=== PATIENT | male | born 1960 | race Caucasian/White ===

== ENCOUNTER 2017-04-24 13:20 | Inpatient (IN) | payer OTHER ==
[~2017-04-24] VITALS: Ht 193 cm; Wt 136.8 kg
--- NOTE | ~2017-04-24 | CO ---
Unit #: [id number] #: [id number] Patient: VIRAJ SANCHEZ [id number] [address] [address] [id number] I MR#: [id number] NAME: VIRAJ SANCHEZ ROOM: 555 Age: 57 Sex: M Admission Date: 04/24/2017 : 1960 Attending Physician: Kennedy Pantoja M.D. Primary Care Physician: No Primary Care Physician CONSULTATION REPORT REASON FOR CONSULTATION 1. Tachycardia. 2. Dizziness. 3. Abnormal EKG. HISTORY OF PRESENT ILLNESS A 57-year-old male with past medical history of diabetes, dyslipidemia, obesity, who has been admitted with dizziness. Patient states he has been having dizziness since morning. He denies any syncope. He denies any chest pain/shortness of breath/dyspnea on exertion. He denies orthopnea, PND or pedal edema or syncope. He reports since his gallbladder surgery two to three months prior his appetite has decreased and he is unable to keep solid or liquid food. He continues to take Lasix, for swelling, from before. Patient while in the ER had brief runs of tachycardia which have been captured on telemetry. I have reviewed those telemetry strips. The patient's ECG reveals normal sinus rhythm with nonspecific ST-segment changes and T-wave changes anteriorly. No Q waves identified. He denies any exertional chest discomfort. He states he can go more than two flights of stairs without any difficulty. PAST MEDICAL HISTORY 1. Diabetes. 2. Dyslipidemia. 3. Obesity. PAST SURGICAL HISTORY 1. Cholecystectomy recently. 2. Denies any cardiac surgery. FAMILY HISTORY Family history is positive for premature coronary artery disease in father with coronary artery bypass grafting at young age. REVIEW OF SYSTEMS Denies fever, nausea, abdominal pain, diarrhea, tingling, numbness, headache, cough, denies swelling. All 14-point review of systems is negative unless as per HPI. Unit #: [id number] #: [id number] Patient: VIRAJ SANCHEZ PHYSICAL EXAMINATION VITAL SIGNS: The patient's blood pressure is 116/77 with a heart rate of 84 beats per minute. He is afebrile, temperature 98.8. GENERAL: Not in acute distress. CHEST: Chest is clear and normal vesicular breath sounds are heard bilaterally. HEART: S1 and S2 are heard. There is no murmur heard. EXTREMITIES: There is no edema. There is no JVD. ABDOMEN: Soft, nontender. Bowel sounds are present. NEUROLOGICALALLY: Speech normal. No motor deficit. PSYCHIATRIC: Mood and affect normal. NECK: There is no thyromegaly, no JVD. MUSCULOSKELETAL: No gross deformity. No scoliosis. HEENT: PERRLA. DIAGNOSTIC STUDIES CARDIOVASCULAR: ECG shows normal sinus rhythm with nonspecific ST/T-wave change seen anteriorly and anterolaterally. Tele strips have been reviewed. Most strips are in normal sinus rhythm. There are three episodes of episodic tachycardia. There is a strip at 13:32:40 which reveals tachycardia at a heart rate around 150 beats per minute. It is not wide enough to be consistent with ventricular tachycardia, likely SVT. LABORATORY: The patient's point of care troponin is negative. The patient's creatinine is 2.0, BUN is 11, glucose is 200, sodium 134, potassium 2.8, chloride is 90, bicarb of 21, bilirubin 0.9, indirect bilirubin is 1.6, alkaline phosphatase is 94, AST of 27, ALT of 21. Next, CT total is 98, BNP is 77. ASSESSMENT AND PLAN 1. Dizziness/tachycardia on telemetry representing likely supraventricular tachycardia: I would consider getting a 2D echocardiogram. This could also re-present secondary to deranged electrolytes. Though given nonspecific ST-segment change on baseline EKG, I would consider also getting a stress test to rule out ischemic heart disease, especially in a patient with diabetes and premature coronary artery disease. He will be scheduled for 2D echocardiogram and stress test in the morning. Continue metoprolol 25 mg p.o. b.i.d. 2. Dyslipidemia: The patient is diabetic. Start statin Lipitor 20 mg p.o. daily. Also start aspirin 81 mg p.o. daily. 3. Dizziness: Could also represent orthostasis in somebody with poor appetite and regular use of Lasix with acute kidney injury at presentation. Agree with saline bolus. Continue IV fluids, Discontinue home dose of Lasix and hold metformin. 4. Further plan of care as inpatient. Dictated by... Ines Pereira/arlet TD: 04/24/2017 22:25 Unit #: [id number] #: [id number] Patient: VIRAJ SANCHEZ JOB #: [id number] CONSULTATION REPORT Page 1 of 1 X DAVID STONE MD CONSULTATION REPORT
--- NOTE | ~2017-04-24 | EKG ---
PATIENT: VIRAJ SANCHEZ UNIT #: [id number] Ventricular Rate: 92 BPM Atrial Rate: 92 BPM P-R Interval: 176 ms QRS Duration: 92 ms Q-T Interval: 356 ms QTC Calculation(Bezet): 440 ms P [place]: 67 degrees Calculated R [place]: -28 degrees Calculated T [place]: 137 degrees Diagnosis Line: Normal sinus rhythm Diagnosis Line: Diagnosis Line: Diagnosis Line: No previous ECGs available Diagnosis Line: Confirmed by BEVERLY ZULUAGA MD ([id number]) on Diagnosis Line: 04/24/2017 7:39:05 PM INTERPRETING MD: MARGARETH ELAINE
--- NOTE | ~2017-04-24 | CR72 ---
[facility] A Service of [facility] & [facility] RADIOLOGY TEXT RESULTS PATIENT: VIRAJ SANCHEZ LOCATION: [facility] [id number] : [birth year] UNIT #: [id number] AGE: [address]: Kennedy Pantoja MD SEX: M ORDER DR: [id number] [facility] [address] [facility]. [place], [place] [address] [id number] I MR#: [id number] Acc #: [id number] NAME: VIRAJ SANCHEZ : 1960 SEX: M STUDY DATE/TIME: 04/24/2017 14:10 UNIT: [facility] ROOM: [facility] STUDY DESCRIPTION: CR Chest Single View Portable Attending Physician: Kennedy Pantoja M.D. Ordering Physician: Semaj Baldwin M.D. Primary Care Physician: No Primary Care Physician MEDICAL IMAGING REPORT This report is preliminary unless electronic signature is present EXAM portable chest. INDICATIONS Chest pain today. COMPARISON 03/01/2017 FINDINGS The lungs are well expanded. No acute infiltrate. Heart size normal. Visualized osseous structures are unremarkable. IMPRESSION No active disease. Dictated by... Ousmane Bocanegra M.D. THIS IS AN ELECTRONICALLY VERIFIED REPORT Ousmane Bocanegra M.D. at 04/26/2017 5:00 PM ARS/florin TD: 04/25/2017 07:56 JOB #: [id number] MEDICAL IMAGING REPORT Page 1 of 1 COPY
--- NOTE | ~2017-04-24 | ST ---
Unit #: [id number] #: [id number] Patient: VIRAJ SANCHEZ [id number] [address] [address] [id number] I MR#: [id number] NAME: VIRAJ SANCHEZ : 1960 SEX: M STUDY DATE/TIME: 04/25/2017 UNIT: C5B ROOM: [address] [place] [address] DESCRIPTION: Attending Physician: Kennedy Pantoja M.D. Primary Care Physician: No Primary Care Physician CARDIOLOGY REPORT EXAM EKG/nuclear part of the test. FINDINGS Patient's baseline heart rate is 77 beats per minute. Blood pressure is 114/77. Patient received Lexiscan infusion as per protocol. During peak infusion, heart rate 105 beats per minute, blood pressure 108/68. Baseline EKG showing normal sinus rhythm, normal EKG. During Lexiscan infusion recovery, no further ST-T changes. Patient received 11.2 mCi of Cardiolite at rest and 34.7 mCi of Cardiolite during stress. Both sets of imaging were compared. Patient shows fairly uniform uptake of radiotracer. No defect was noted. Patient also has gated SPECT scan which showed normal LV size and function. No wall motion abnormality detected. Ejection fraction 58%. INTERPRETATION OF TEST 1. No evidence of myocardial ischemia. 2. Normal LV size and function. Dictated by... Ines Mcfarlane/angel TD: 04/27/2017 10:06 JOB #: [id number] CARDIOLOGY REPORT Page 1 of 1 X Neal Devine MD CARDIOLOGY REPORT
--- NOTE | ~2017-04-24 | HP ---
Unit #: [id number] #: [id number] Patient: VIRAJ SANCHEZ [id number] [facility] [address] [facility]. [place], [place] [address] [id number] I MR#: [id number] NAME: VIRAJ SANCHEZ ROOM: 78729 Age: 57 Sex: M Admission Date: 04/24/2017 : 1960 Attending Physician: Kennedy Pantoja M.D. Primary Care Physician: No Primary Care Physician HISTORY AND PHYSICAL DIAGNOSES ON ADMISSION 1. Acute kidney injury. 2. Hypokalemia. HISTORY OF PRESENT ILLNESS A 57-year-old patient presented to [facility] with shortness of air. Patient stated that he was in his usual state of health when he developed shortness of air which was sudden in onset and started a few hours prior to presenting to ER. Patient stated that it was worse on ambulation. Patient stated that he had a tough time catching his breath; therefore, he decided to come to the hospital. He also complained of discomfort across the top of his back which started around the same time. Patient stated that otherwise he was doing okay. He denies having any diarrhea or fever or chills. In the ER patient was diagnosed with severe hypokalemia with a potassium level of 2.8. He was given potassium 40 mEq. Patient stated that the shortness of air has improved and the shoulder discomfort has improved as well but he is complaining of generalized weakness. Patient denies having any headache, visual problems, sore throat, nausea or vomiting. There is no history of rectal bleeding or blood in stools. REVIEW OF SYSTEMS The rest of the review of systems is negative. PAST MEDICAL HISTORY 1. Type 2 diabetes mellitus. 2. Degenerative joint disease. 3. Patient had history of biliary obstruction and common bile duct stones and had an ERCP in August 2006 in which the stones were removed. 4. Cholecystectomy. Patient stated that he had a cholecystectomy done around three months ago at [facility]. ALLERGIES No known drug allergies. HOME MEDICATIONS Patient takes: 1. Ibuprofen off and on 800 mg t.i.d. p.r.n. 2. Potassium 10 mEq daily. 3. Glucophage 1000 mg p.o. b.i.d. 4. Lasix 40 mg p.o. daily. Unit #: [id number] #: [id number] Patient: VIRAJ SANCHEZ SOCIAL HISTORY Patient denies smoking or drinking or use of illicit drugs. FAMILY HISTORY Patient denies any significant history of illness in his family. PHYSICAL EXAMINATION GENERAL: Patient was lying comfortably in bed, not in any obvious acute distress. VITAL SIGNS: On physical examination his vital signs reveal temperature of 97.6, pulse is 95 per minute, respiratory rate is 16 per minute, blood pressure is 102/76. HEENT EXAMINATION: Revealed no conjunctival congestion. Sclerae are nonicteric. NECK: Supple. Trachea is central. RESPIRATORY: Examination revealed decreased breath sounds bilaterally. There are no wheezes or crackles. HEART: Regular rate and rhythm, S1 and S2. ABDOMEN: Soft, nontender. Bowel sounds are present in all four quadrants. EXTREMITIES: Reveal trace pedal edema. SKIN: Skin is warm and dry. NEUROLOGIC: Neurologically patient's strength is 5/5 bilaterally. PSYCHIATRIC: Patient is alert to person, place and time. DIAGNOSTIC STUDIES LABORATORY: On admission the patient's creatinine is 2.0, it was 0.11 August 2016, sodium is 134, potassium is 2.8. Next, the patient's AST and ALT are within normal limits. Next, total bilirubin was 2.1. Next, BNP was 77. Next, WBC is 14.7, hemoglobin is 15.3, platelet count is 323. The patient's troponin was negative. CARDIOVASCULAR: Initially when the patient came to the ER he had a wide complex tachycardia in 160s. When his EKG was done he had a normal sinus rhythm with decreased T-wave projection. IMAGING: Chest x-ray did not reveal any acute abnormality as per preliminary report. ASSESSMENT AND PLAN 1. Severe hypokalemia: We will replete the patient's potassium. It is secondary to Lasix. 2. Acute kidney injury, it is multifactorial and likely secondary to ibuprofen, Lasix and metformin. 3. Type 2 diabetes mellitus: Will do the patient's hemoglobin A1C and will start on insulin sliding scale. 4. Degenerative joint disease: Will start patient on Tylenol. 5. Wide complex tachycardia: I will request Dr. Herbert to see patient in consultation. We will repeat the patient's magnesium level with next lab draw. 6. Patient is full code. 7. The plan was discussed in detail with patient. Unit #: [id number] #: [id number] Patient: VRIAJ SANCHEZ Dictated by Ines Montana/arlet TD: 04/24/2017 20:46 JOB #: [id number] HISTORY AND PHYSICAL Page 1 of 1 X Kennedy Pantoja MD X HISTORY AND PHYSICAL
--- NOTE | ~2017-04-24 | DS ---
Unit #: [id number] #: [id number] Patient: VIRAJ SANCHEZ [id number] [address] [place], [place] [address] [id number] I MR#: [id number] NAME: VIRAJ SANCHEZ ROOM: 555 Age: 57 Sex: M Admission Date: 04/24/2017 : 1960 Discharge Date: 04/25/2017 Attending Physician: Kennedy Pantoja M.D. Primary Care Physician: No Primary Care Physician DISCHARGE SUMMARY DIAGNOSES ON ADMISSION 1. Acute kidney injury. 2. Hypokalemia. DIAGNOSES ON DISCHARGE 1. Acute kidney injury, resolved. 2. Hypokalemia, improved. 3. Type 2 diabetes mellitus. 4. Degenerative joint disease. 5. Tachycardia. 6. Dizziness. CONSULTATIONS Dr. Brown and group in cardiac consultation. DIAGNOSTIC STUDIES CARDIOVASCULAR: The patient had a Lexiscan stress test done. The results are pending. The patient also had a two-D echocardiogram done. The results are pending. LABS: The patient's hemoglobin A1C was 7.82. Troponin was 0.05. TSH was 1.38. The patient's potassium level on admission was 2.8. It is 3.3 today. Creatinine is 1.2, sodium 134. White blood cells 8.6, hemoglobin 13.6, platelet count 219. IMAGING: Chest x-ray did not reveal any active disease. HOSPITAL COURSE This 57-year-old patient was admitted to the hospital with weakness, shortness of air. Details are as per admission H and P. The patient was seen by cardiology in consultation. The patient had a stress test done and echocardiogram done, which are pending. OK was ruled out. Acute kidney injury. The patient responded to IV fluids, and it is resolved. Hypokalemia. The patient severe hypokalemia. Received IV potassium, and his potassium level is normal. Today, the patient is comfortable and feels much better and is anxious to go home. Therefore, if the patient's stress test and echo are okay, then we will discharge the patient home with followup on outpatient basis. Unit #: [id number] #: [id number] Patient: VIRAJ SANCHEZ RECOMMENDATIONS ON DISCHARGE 1. Condition is stable. 2. Activity is as tolerated. DISCHARGE MEDICATIONS 1. Tylenol 650 mg p.o. q.6 hours p.r.n. 2. Lopressor 25 mg p.o. b.i.d. 3. Lipitor 20 mg p.o. q.h.s. 4. Enteric-coated aspirin 81 mg p.o. daily. 5. Potassium 10 mEq p.o. daily. FOLLOWUP/RECOMMENDATIONS 1. The patient is advised to follow up with primary care physician in 1 week and with cardiology as recommended. 2. The patient is advised to call primary care physician or go to ER if his condition changes. NOTE: The plan was discussed in detail with the patient, who showed complete understanding. Dictated by... Ines Montana/london TD: 04/25/2017 14:47 JOB #: [id number] DISCHARGE SUMMARY Page 1 of 1 X Kennedy Pantoja MD X DISCHARGE SUMMARY
[~2017-04-24 13:20] MED LIST: ACTOS PO; HYDROCODONE-APA1 T30 PO; NO MEDICATIONS; NORCO 10/325 TA1 TAB PO
[2017-04-24 14:05] LABS: POC - CKMB 5.4 ng/mL (0.0-7.9); POC - TROPONIN <0.05 ng/mL (<=0.05)
[2017-04-24 14:07] LABS: BASOPHIL# 0.1 X10e3 (0-0.3); BASOPHIL% 0.7 % (0-2.5); EOSINOPHIL# 0.1 X10e3 (0-0.7); EOSINOPHIL% 0.5 % (0.0-7.0); HEMATOCRIT 47.6 % (38.0-50.0); HEMOGLOBIN 15.3 gm/dL (13.0-16.0); LYMPHOCYTE# 2.3 X10e3 (1.0-3.5); LYMPHOCYTE% 15.9 % (17.0-45.0); MEAN CELL VOLUME 80.4 FL (83-96); MEAN CORPUSCULAR HEMOGLOBIN 25.9 PG (28-34); MEAN CORPUSCULAR HGB CONC 32.1 g/dL (30-36); MEAN PLATELET VOLUME 8.7 FL (6.5-11.5); MONOCYTE# 0.9 X10e3 (0-1.0); MONOCYTE% 6.1 % (3.0-12.0); NEUTROPHIL# 11.3 X10e3 (1.5-7.1); NEUTROPHIL% 76.8 % (40-75); PLATELET COUNT 323 X10e3 (140-420); RED BLOOD COUNT 5.92 X10e (3.90-5.60); WHITE BLOOD COUNT 14.7 X10e3 (4.0-10.5)
[2017-04-24 14:09] LABS: DIFF IND NO
[2017-04-24 14:33] LABS: ALBUMIN SERUM 3.9 g/dL (3.5-5.0); BILIRUBIN, DIRECT 0.5 mg/dL (0.0-0.2); BILIRUBIN,INDIRECT 1.6 mg/dL (0.0-0.9); BILIRUBIN,TOTAL 2.1 mg/dL (0.2-2.0); BUN/CREATININE RATIO 5.5; CALCIUM SERUM 9.4 mg/dL (8.4-10.2); GLOM FILT RATE Estimated 35.5 mL/min (>60)
[2017-04-24 14:42] LABS: POTASSIUM 2.8 mmol/L (3.5-5.1)
[2017-04-24] MEDS ORDERED: PATIENT'S PHARMACY (14:59)
[2017-04-24] MEDS ORDERED: IBUPROFEN PO (14:59)
[2017-04-24] MEDS ORDERED: LASIX PO (14:59)
[2017-04-24] MEDS ORDERED: KCL PO (14:59)
[2017-04-24] MEDS ORDERED: METFORMIN PO (14:59)
[2017-04-24 21:45] LABS: %MB 6.4 % (0.0-4.0); MB 6.3 ng/ml
[2017-04-24 23:43] LABS: MAGNESIUM 1.5 mg/dL (1.6-3.0)
[2017-04-24 23:45] LABS: POTASSIUM 2.8 mmol/L (3.5-5.1)
[2017-04-25 02:53] LABS: %MB 3.8 % (0.0-4.0); MB 11.1 ng/ml
[2017-04-25 05:27] LABS: HEMATOCRIT 41.5 % (38.0-50.0); HEMOGLOBIN 13.6 gm/dL (13.0-16.0); MEAN CELL VOLUME 79.3 FL (83-96); MEAN CORPUSCULAR HGB CONC 32.7 g/dL (30-36); MEAN PLATELET VOLUME 8.2 FL (6.5-11.5); RED BLOOD COUNT 5.23 X10e (3.90-5.60); RED CELL DISTRIBUTION WIDTH 15.8 % (11.0-15.5); WHITE BLOOD COUNT 8.6 X10e3 (4.0-10.5)
[2017-04-25 06:55] LABS: BUN/CREATININE RATIO 6.66; CALCIUM SERUM 8.3 mg/dL (8.4-10.2); CREATININE SERUM 1.2 mg/dL (0.6-1.4); GLOM FILT RATE Estimated 65.8 mL/min (>60); MAGNESIUM 1.7 mg/dL (1.6-3.0); POTASSIUM 3.3 mmol/L (3.5-5.1)
[2017-04-25] MEDS ORDERED: TYLENOL325 M1 PO (14:23)
[2017-04-25] MEDS ORDERED: LOPRESSOR PO (14:24)
[2017-04-25] MEDS ORDERED: GLUCOTROL PO (14:25)
[2017-04-25] MEDS ORDERED: ASPIRIN81 MG PO (14:27)
[2017-06-24] MEDS ORDERED: NO MEDICATIONS (21:25)
[2017-06-26] MEDS ORDERED: FAMOTIDINE PO (16:15)
== END 2017-04-25 18:41 | disposition home or self-care (01) | DRG 683 ==
LOC: CED 13:20 → CEDOF 15:40 → CED 16:35 → CEDOF 16:35 → C5B 21:46 → CEDOF 21:46 → C5B 04-25 18:41
PROVIDERS: Emergency Medicine; Internal Medicine
PROC: B24BYZZ Ultrasonography of Heart with Aorta using Other Contrast (ICD-10-PCS; principal; 2017-04-25)
DX: N17.9 Acute kidney failure, unspecified (principal); I47.1 Supraventricular tachycardia; Z68.41 Body mass index [BMI] 40.0-44.9, adult; E87.6 Hypokalemia; E11.9 Type 2 diabetes mellitus without complications; Z79.84 Long term (current) use of oral hypoglycemic drugs; M19.90 Unspecified osteoarthritis, unspecified site; Z90.49 Acquired absence of other specified parts of digestive tract; R94.31 Abnormal electrocardiogram [ECG] [EKG]; E78.5 Hyperlipidemia, unspecified; E66.9 Obesity, unspecified; R42 Dizziness and giddiness
CPT/HCPCS: 36415; 71010; 78452; 80048; 80076; 82550; 82553; 82947; 83036; 83735; 83880; 84132; 84443; 84484; 85025; 85027; 93005; 93017; 93306; 96360; 99285; A9500; J1650; J2785; J3475; J3480

== ENCOUNTER 2017-05-08 09:59 | Emergency (ER) | payer OTHER ==
[~2017-05-08] VITALS: Ht 190.5 cm; Wt 136.8 kg
--- NOTE | ~2017-05-08 | US67 ---
[facility] A Service of [facility] RADIOLOGY TEXT RESULTS PATIENT: VIRAJ SANCHEZ LOCATION: [facility] : 56 UNIT #: [id number] AGE: [address]: Maria C Bee MD SEX: M ORDER DR: [id number] [facility]. [place], [place] [address] [id number] MR#: [id number] Acc #: [id number] NAME: VIRAJ SANCHEZ : 1960 SEX: M STUDY DATE/TIME: 05/08/2017 12:06 UNIT: [facility] ROOM: STUDY DESCRIPTION: US Gallbladder Attending Physician: Maria C Bee M.D. Ordering Physician: Maria C Bee M.D. Primary Care Physician: Primary Care Physician No MEDICAL IMAGING REPORT This report is preliminary unless electronic signature is present EXAM Gallbladder ultrasound 05/08/2017 HISTORY Right upper quadrant abdominal pain for 1 day with jaundice. FINDINGS Liver demonstrates an increase in echotexture with attenuation of the ultrasound beam characteristic of fatty infiltration. No cystic or solid mass lesions were seen in the liver. The intrahepatic bile ducts are not dilated. The gallbladder is surgically absent as per patient history. The common duct measures 8 mm in diameter which is minimally dilated. Clinical correlation recommended. The pancreas is poorly visualized due to overlying bowel gas. The right kidney is normal. IMPRESSION 1. Mild fatty infiltration of the liver. 2. Surgical absence of the gallbladder with mild dilatation of the common bile duct to 8 mm. No obstructing mass or calculus is seen but distal aspect of the common bile duct and pancreas are obscured by bowel gas. Clinical correlation is recommended. Dictated by... Alli Zambrano M.D. THIS IS AN ELECTRONICALLY VERIFIED REPORT Alli Zambrano M.D. at 05/09/2017 7:22 AM KRT/to TD: 05/08/2017 21:04 JOB #: [id number] MEDICAL IMAGING REPORT [facility] A Service of [facility] RADIOLOGY TEXT RESULTS PATIENT: VIRAJ SANCHEZ LOCATION: [facility] : 56 UNIT #: [id number] AGE: [address]: Maria C Bee MD SEX: M ORDER DR: Page 1 of 1 COPY
[~2017-05-08 09:59] MED LIST changes: +ASPIRIN81 MG PO; +GLUCOTROL PO; +IBUPROFEN PO; +KCL PO; +LASIX PO; +LOPRESSOR PO; +METFORMIN PO; +PATIENT'S PHARMACY; +TYLENOL325 M1 PO
[2017-05-08 10:57] LABS: BASOPHIL% 0.7 % (0-2.5); DIFF IND NO; EOSINOPHIL# 0.1 X10e3 (0-0.7); EOSINOPHIL% 2.4 % (0.0-7.0); HEMATOCRIT 36.1 % (38.0-50.0); HEMOGLOBIN 11.9 gm/dL (13.0-16.0); LYMPHOCYTE# 1.2 X10e3 (1.0-3.5); LYMPHOCYTE% 20.8 % (17.0-45.0); MEAN CELL VOLUME 81.2 FL (83-96); MEAN CORPUSCULAR HEMOGLOBIN 26.8 PG (28-34); MEAN CORPUSCULAR HGB CONC 33.1 g/dL (30-36); MEAN PLATELET VOLUME 7.5 FL (6.5-11.5); MONOCYTE# 0.4 X10e3 (0-1.0); MONOCYTE% 6.5 % (3.0-12.0); NEUTROPHIL# 4.2 X10e3 (1.5-7.1); NEUTROPHIL% 69.6 % (40-75); PLATELET COUNT 192 X10e3 (140-420); RED BLOOD COUNT 4.44 X10e (3.90-5.60); RED CELL DISTRIBUTION WIDTH 16.7 % (11.0-15.5)
[2017-05-08 11:31] LABS: ALBUMIN SERUM 2.7 g/dL (3.5-5.0); BILIRUBIN, DIRECT 0.2 mg/dL (0.0-0.2); BILIRUBIN,INDIRECT 0.8 mg/dL (0.0-0.9); CALCIUM SERUM 8.2 mg/dL (8.4-10.2); PROTEIN TOTAL SERUM 6.1 g/dL (6.0-8.3)
[2017-05-08 12:51] LABS: URINE SOURCE CLEAN CATCH
[2017-05-08 12:54] LABS: URINE APPEARANCE CLEAR; URINE BILIRUBIN NEG (NEG); URINE BLOOD NEG (NEG); URINE COLOR DK YELLOW; URINE GLUCOSE NEG (NEG); URINE KETONE NEG (NEG); URINE LEUKOCYTE ESTERASE TRACE (NEG); URINE NITRATE NEG (NEG); URINE PH 6.5 (5-8); URINE PROTEIN TRACE (NEG); URINE SPECIFIC GRAVITY 1.013 (1.003-1.035)
[2017-05-08 12:56] LABS: CULTURE INDICATED? YES; URINE BACTERIA AUWI NEG (NEGATIVE); URINE SQUAMOUS EPITHELIAL CELL FEW /[HPF]
[2017-05-08 13:04] LABS: URINE MUCUS PRESENT
[2017-05-08 13:07] LABS: URBCS1 AUWI 0-2 /[HPF] (0-2)
[2017-06-24] MEDS ORDERED: NO MEDICATIONS (21:25)
[2017-06-26] MEDS ORDERED: FAMOTIDINE PO (16:15)
== END 2017-05-08 14:19 | disposition home or self-care (01) ==
LOC: CED 09:59
DX: R10.11 Right upper quadrant pain (principal); E11.9 Type 2 diabetes mellitus without complications; Z90.49 Acquired absence of other specified parts of digestive tract; Z98.890 Other specified postprocedural states; Z79.899 Other long term (current) drug therapy
CPT/HCPCS: 36415; 76705; 80048; 80076; 81003; 83690; 85025; 87086; 99284

== ENCOUNTER 2017-05-13 12:20 | Inpatient (IN) | payer OTHER ==
[~2017-05-13] VITALS: Ht 193 cm; Wt 136.1 kg
--- NOTE | ~2017-05-13 | MR145 ---
[facility] A Service of [facility] & [facility] RADIOLOGY TEXT RESULTS PATIENT: VIRAJ SANCHEZ LOCATION: C2A 219-01 : [birth year] UNIT #: [id number] AGE: [address]: MANDA MCDERMOTT V SEX: M ORDER DR: [id number] [facility]. [place], [place] [address] [id number] I MR#: [id number] Acc #: [id number] NAME: VIRAJ SANCHEZ : 1960 SEX: M STUDY DATE/TIME: 05/14/2017 13:25 UNIT: C2A ROOM: 219 STUDY DESCRIPTION: MR MRCP WWo Contrast Attending Physician: Manda Mcdermott M.D. Ordering Physician: Antolin Escobar M.D. Primary Care Physician: Primary Care Physician No MRI CENTER REPORT This report is preliminary unless electronic signature is present. EXAM MRI abdomen with/without contrast, MRCP protocol INDICATIONS Right upper quadrant abdominal pain, nausea and vomiting for the past 2 weeks. Patient is status post cholecystectomy 2-3 months ago. PROCEDURE Multiplanar, multisequence MR imaging of the abdomen prior to and following 20 mL of MultiHance. COMPARISON 05/13/2017 and 02/23/2017 FINDINGS ABDOMEN WITHOUT CONTRAST: Liver enlarged measuring 21.9 cm, spleen enlarged measuring 16 cm. Mild hepatic steatosis. Previous cholecystectomy. Pneumobilia. Mild prominence of the biliary system. Pancreatic duct nondilated. Kidneys, adrenal glands, pancreas, bowel loops have normal signal. No new organized fluid collection. There are three nonspecific foci in the upper abdomen, one along the subcapsular anterior right hepatic lobe, one anterior to the stomach, and the other in the anterior left upper quadrant. These show decreased T2 signal intensity. The one anterior to the right lobe measures 1.6 cm, one anterior to the stomach measures 1.6 cm, and one in the left upper quadrant measures 1.9 cm. These are stable to minimally decreased compared with the previous CT on 05/13/2017. ABDOMEN WITH CONTRAST: Above described three foci do show rim enhancement. There is also a poorly defined area of enhancement and STS. [facility] A Service of [facility] & [facility] RADIOLOGY TEXT RESULTS PATIENT: VIRAJ SANCHEZ LOCATION: A 219-01 : [birth year] UNIT #: [id number] AGE: [address]: MANDA MCDERMOTT V SEX: M ORDER DR: heterogeneous signal in the omental fat at the midline. This area is stable, measuring 3 cm. IMPRESSION 1. Previous cholecystectomy. 2. No new organized fluid collection. 3. Hepatosplenomegaly. 4. Three nonspecific nodular foci in the upper abdomen detailed above do show rim enhancement. As previously stated, these may represent resolving hematomas. They are stable to minimally decreased in size since the 05/13/2017 study and can be followed to document resolution. 5. 3-cm area of poorly defined enhancement and heterogeneous signal in the midline omental fat is favored to represent an area of evolving fat necrosis. This can be followed, as well. 6. Minimal prominence of the biliary system with pneumobilia. Dictated by... Stephan Carter M.D. THIS IS AN ELECTRONICALLY VERIFIED REPORT Stephan Carter M.D. at 05/15/2017 8:17 AM EED/fang TD: 05/14/2017 16:47 JOB #: [id number] MRI CENTER REPORT Page 1 of 1 COPY
--- NOTE | ~2017-05-13 | OR ---
Unit #: [id number] #: [id number] Patient: VIRAJ SANCHEZ [id number] [address] [address] [id number] I MR#: [id number] NAME: VIRAJ SANCHEZ ROOM: 219 Date of Procedure: 05/16/2017 Admission Date: 05/13/2017 Surgeon: Antolin Escobar M.D. : 1960 Attending Physician: Maggie Wade M.D. Primary Care Physician: Primary Care Physician No OPERATIVE REPORT PROCEDURE PERFORMED Esophagogastroduodenoscopy with biopsies. INDICATIONS FOR PROCEDURE Persistent right upper quadrant pain, anemia, nausea, and vomiting, undergoing evaluation with upper endoscopy. MEDICATIONS Monitored anesthesia. POSTOPERATIVE FINDINGS 1. 5 mm ulcer, duodenal bulb. 2. Moderate gastritis, biopsies taken. 3. Normal esophagus. PLAN Continue PPI therapy. Further evaluation needed with colonoscopy. DESCRIPTION OF PROCEDURE The patient was explained of the procedure, risks, and benefits along with the risks and benefits of anesthesia. He was brought to the endoscopy room. Propofol anesthesia was given. Bite block was placed. The scope was passed down the mouth into the esophagus, stomach, duodenum, and distal duodenum. Findings as described. Biopsies taken. Gently, I pulled the scope out of the patient's mouth. He tolerated it well. No major complications were seen. Dictated by... Ines rBown/rick TD: 05/16/2017 12:17 JOB #: [id number] Unit #: [id number] #: [id number] Patient: VIRAJ SANCHEZ OPERATIVE REPORT Page 1 of 1 X Antolin Escobar MD X PROCEDURE OPERATIVE NOTE
--- NOTE | ~2017-05-13 | A ---
[facility] Nutrition Therapy DATE: 05/15/17 Patient: VIRAJ SANCHEZ Physician: KATIE Address: [address] [place] [address] Room/Bed: [address] [place] [address], Zip: [place] [address] Admit Date: 05/13/17 Date of : 56 Height: 6 4 Weight: 300 136.07 NUTRITIONAL ASSESSMENT: REASON: 5 NUTRITION RISK PT RE: WEIGHT LOSS NOTED PT IS 57 Y.O. MALE ADMITTED FOR ABD PAIN PMH: DM, COMMON BILE DUCT S/P ERCP, CHOLY, DJD, ETOH ABUSE Anthropometrics: 6'4", WT: 299# (135.9 KG), BMI: 36.4 Labs: BUN: 6, CA+:8.1, ALB: 2.3, ALT: 9, HgbA1c: 7.2 (04/24/17), LIPASE: 16 Meds: PROTONIX, NOVOLOG, KCL, ZOFRAN, NACL I/O & Bowel function: 2860/1452 Skin Integrity: NO KNOWN SKIN ISSUES Assessment: CHART REVIEWED AND EVENTS NOTED. PT SEEN FOR 5 NUTRITION RISK PT RE: WEIGHT LOSS. PT REPORTS DECREASED PO INTAKE 2' DECREASED APPETITE SINCE FEBRUARY 2017 (3 MONTHS) POST CHOLECYSTECTOMY. PT REPORTS STARTING TO EAT AGAIN 2 WEEKS AGO. PT C/O ABD PAIN. PT REPORTS LOSING ~100# PAST 3 MONTHS/SEVERE WEIGHT LOSS NOTED (25% SEVERE). THIS RD ENCOURAGED SLOW GRADUAL PO INTAKE + FREQUENT SMALL MEALS. PT CURRENTLY NPO FOR PROCEDURE TODAY. PT WAS ON CC DIET PRIOR. RD ALSO PROVIDED CC+HH DIET EDUCATION (WRITTEN AND VERBAL). PT DEMONSTRATED UNDERSTANDING OF THE TOPIC. PT REPORTED NO DIET QUESTIONS AT THIS TIME. RD TO FOLLOW/REMAIN AVAILABLE. Dx: DECREASED PROTEIN-ENERGY INTAKE R/T ABD PAIN, PMH AEB PT REPORT ABOVE, ~25%/100# WEIGHT LOSS IN PAST 3 MONTHS. 2. OBESITY CLASS II R/T LIFESTYLE AEB BMI OF 36.4. Intervention: 1. NPO 2. DIET EDUCATION Monitoring, Evaluation and Goals: 1. ORAL INTAKE; ADVANCE DIET AND CONSUME/TOLERATE >50% OF MEALS 2. WEIGHTS; PROMOTE GRADUAL WEIGHT LOSS TOWARDS A HEALTHY BMI 3. LABS; WNL MONITOR: -DIET ADVANCEMENT -PO INTAKE/APPETITE [facility] Nutrition Therapy DATE: 05/15/17 Patient: VIRAJ SANCHEZ Physician: KATIE Address: [address] [place] [address] Room/Bed: [address], Zip: [place] [address] Admit Date: 05/13/17 Date of : 56 Height: 6 4 Weight: 300 136.07 -WEIGHTS -EDUCATION NEEDS Recommendations: 1. ONCE MEDICALLY FEASIBLE, ADVANCE DIET PER PT TOLERANCE TO CC+ DIET 2'PMH 2. ORDER GLUCERNA SHAKES BID IF PO INTAKE <50% 3. ENCOURAGE COMPLIANCE OF DIET ORDER 4. RD TO F/U ON EDUCATION MATERIAL AT NEXT MEETING RD WILL F/U PER PROTOCOL PT IS MILD/MODERATELY COMPROMISED Respectfully, TIMOTHY PRITCHARD MS, RD, LD Food and Nutritional Services [facility] cc: client file
--- NOTE | ~2017-05-13 | CT2 ---
[facility] A Service of [facility] RADIOLOGY TEXT RESULTS PATIENT: VIRAJ SANCHEZ LOCATION: [facility] 219-01 : 56 UNIT #: [id number] AGE: [address]: Princess Kwan MD SEX: M ORDER DR: [id number] [facility]. [place], [place] [address] [id number] MR#: [id number] Acc #: [id number] NAME: VIRAJ SANCHEZ : 1960 SEX: M STUDY DATE/TIME: 05/13/2017 14:39 UNIT: LUI ROOM: STUDY DESCRIPTION: CT Abd and Pelv W Cont Attending Physician: Maria C Bee M.D. Ordering Physician: Maria C Bee M.D. Primary Care Physician: No Primary Care Physician MEDICAL IMAGING REPORT This report is preliminary unless electronic signature is present EXAM CT abdomen and pelvis with IV contrast. HISTORY Right upper quadrant and right lower quadrant pain for 1 day. Cholecystectomy 3 [address] ago. TECHNIQUE This CT exam was performed with one or more of the following radiation dose reduction techniques: automatic exposure control, adjustment of mA and/or kV according to patient size, and iterative reconstruction. FINDINGS CT abdomen and pelvis was performed with IV contrast. CT ABDOMEN: There is mild soft tissue stranding along the anteroinferior margin of the left hepatic lobe extending into the anterior upper abdominal midline in the pericolonic fat, with a more focal rounded density in the midline measuring nearly 3 cm, and a 1.8 cm rounded nodular density in the superior left upper quadrant with mild adjacent stranding. These are nonspecific, but could be postoperative hematomas and inflammatory stranding. Interval cholecystectomy since CT 02/23/2017. Pneumobilia. No free fluid. The spleen is mildly enlarged measuring 17 cm in length. The pancreas, kidneys, and adrenal glands are normal. Normal caliber abdominal aorta. No bowel dilatation. Normal appendix. CT PELVIS: No free fluid. Urinary bladder is normal. No bowel dilatation. Right groin adenopathy measures 1.8 cm. IMPRESSION 1. Probable residual postoperative hematomas in the upper abdomen [facility] A Service of [facility] RADIOLOGY TEXT RESULTS PATIENT: VIRAJ SANCHEZ LOCATION: A 219-01 : 56 UNIT #: [id number] AGE: [address]: Princess Kwan MD SEX: M ORDER DR: adjacent to the inferior margin of the left hepatic lobe measuring close to 3 cm with a smaller probable hematoma in the superior left upper quadrant in the perisplenic fat measuring close to 1.8 cm. 2. Interval cholecystectomy since 02/23/2017. Pneumobilia. 3. No free fluid in the abdomen or pelvis. 4. Mild splenic enlargement is similar to the prior CT. 5. Mild adenopathy in the right groin measures 1.8 cm and could be reactive or inflammatory. Dictated by... Pato Qiu M.D. THIS IS AN ELECTRONICALLY VERIFIED REPORT Pato Qiu M.D. at 05/13/2017 8:42 PM ZARA/cecilio TD: 05/13/2017 18:23 JOB #: [id number] MEDICAL IMAGING REPORT Page 1 of 1 COPY
--- NOTE | ~2017-05-13 | HP ---
Unit #: [id number] #: [id number] Patient: VIRAJ SANCHEZ [id number] [facility]. [place], [place] [address] [id number] E MR#: [id number] NAME: VIRAJ SANCHEZ ROOM: Age: 57 Sex: M Admission Date: 05/13/2017 : 1960 Attending Physician: Maria C Bee M.D. Primary Care Physician: Primary Care Physician No HISTORY AND PHYSICAL CHIEF COMPLAINT Abdominal pain HISTORY OF PRESENT ILLNESS The patient is a 57-year-old male with past medical history of common bile duct stone status post ERCP, stent placement and removal, cholecystectomy, diabetes, degenerative joint disease, alcohol abuse, who presented to the emergency department for evaluation of the above. The patient states that he underwent cholecystectomy about 3 months ago at [place]. He states that he just resumed eating about 2 weeks ago. Since that time he has had intermittent abdominal pain. Initially, it was on the right side. He states that it was sharp in nature. He states that the pain was exacerbated by movement and sleeping on his right side. For the past couple of days, the pain has been constant. It has been exacerbated by eating. There are no alleviating factors. He denies any nausea or vomiting. He denies any diarrhea. No blood in the stool or black tarry stool. The patient was seen in the emergency department here at [facility] on May 08 for abdominal pain. An ultrasound was done of the gallbladder and showed mild fatty infiltration of the liver, surgical absence of the gallbladder with mild dilatation of the common bile duct to 8 mm. he was discharged home. He returns today for the same problem. In the emergency department today, CT of the abdomen and pelvis was done and showed findings consistent with postoperative hematoma in the upper abdomen. Laboratory notable for potassium 2.8. He received 2 liters of normal saline as well as 4 mg of morphine, 4 mg of Zofran and 60 mEq of potassium in the emergency department. He is being admitted to [facility] for evaluation and further treatment. PAST MEDICAL HISTORY 1. Admission to [facility] April 24-2016, for acute kidney injury. He also underwent stress test during that admission that was negative and showed an ejection fraction of 58%. 2. Diabetes. 3. Degenerative joint disease 4. History of common bile duct stone status post stent placement and removal. The patient has seen Dr. Escobar in the past here at [facility]. He has also seen Dr. Martin. PAST SURGICAL HISTORY 1. Common bile duct stent placement and removal. Unit #: [id number] #: [id number] Patient: VIRAJ SANCHEZ 2. ERCP. 3. EGD, most recently at [place] within the past month or two. (No records) 4. Cholecystectomy. 5. Bilateral knee arthroscopic surgeries. SOCIAL HISTORY The patient denies tobacco use. He has a history of heavy alcohol use. He states that his last drink was a few weeks ago, to "stimulate his appetite." He has a cane that he uses intermittently. CODE STATUS Full code. FAMILY HISTORY Is notable for his mother having diabetes as well as coronary artery disease. ALLERGIES No known allergies HOME MEDICATIONS 1. Posterior 10 mEq daily 2. Tylenol 650 mg every 6 hours p.r.n. 3. Lopressor 25 mg twice daily 4. Glucotrol 2.5 mg daily 5. Aspirin 81 mg daily REVIEW OF SYSTEMS A complete review of systems is negative except as indicated in the HPI. The patient states that he does not routinely check his blood sugars. He has lost 100 pounds within the past three to four months. Per [facility] records, the patient's weight was 363 on August 29, 2016, it is 300 today. DIAGNOSTIC STUDIES IMAGING: CT of abdomen and pelvis shows findings suggestive of postoperative hematoma. Gallbladder ultrasound from May 08, 2017, showed mild fatty infiltration of the liver with mild dilatation of the common bile duct to 0.8 mm. Urine culture from April showed no growth after 48 hours. Complete blood count notable for hemoglobin and hematocrit of 10.8 and 32.3 respectively. MCV is 80.6, RDW 16.4. Urinalysis today showed trace protein. Comprehensive metabolic panel notable for a potassium of 2.8, glucose 165, calcium 7.9, but corrects when albumin of 2.6 is accounted for, lipase 20, alcohol level less than 5. PHYSICAL EXAMINATION VITAL SIGNS: Temperature 99.4, pulse 63, respirations 16, blood pressure 145/87. Oxygen saturation 100% on room air. GENERAL: The patient is a male who is awake and alert in no acute distress. HEENT: The head is atraumatic. Mucous membranes are moist. NECK: Supple. Trachea is midline. CARDIOVASCULAR: Regular rate and rhythm. LUNGS: Clear to auscultation bilaterally with no increased work of breathing. Unit #: [id number] #: [id number] Patient: VIRAJ SANCHEZ ABDOMEN: Soft, he is tender to palpation in the right upper and lower quadrants. Bowel sounds are present in all four quadrants. EXTREMITIES: Nontender with no pedal edema. NEUROLOGIC: The patient is awake and alert. He follows commands. PSYCHIATRIC: Mood and affect are normal. The patient is cooperative. SKIN: Of examined areas is warm and dry. ASSESSMENT The patient is a 57-year-old male with: 1. Abdominal pain. 2. Postoperative hematoma. The patient is approximately three months status post cholecystectomy. 3. Hypokalemia with an initial potassium of 2.8. The patient received 60 mEq of potassium p.o. in the emergency department. 4. Microcytic anemia. The patient's hemoglobin is 10.8, it was 11.9 on May 08, 2017. 5. History of common bile duct stone status post stent placement and removal and ultimately cholecystectomy. 6. Diabetes. 7. Degenerative joint disease. 8. History of alcohol abuse with last drink several weeks ago. 9. Weight loss. PLAN 1. Admit for observation to Medical-Surgical. 2. Advance diet to consistent carbohydrate, clear liquids as tolerated. 3. Normal saline at 75 mL/hour. 4. Morphine p.r.n. 5. Zofran p.r.n. 6. Get records from [facility] including endoscopy/operative notes. 7. Consult Dr. Escobar regarding abdominal pain. 8. Check magnesium level. 9. Potassium/magnesium protocol. 10. Low-dose sliding scale insulin with AccuChek. 11. Protonix with first dose now. 12. Repeat labs in the morning including magnesium. 13. Sequential compression devices for deep venous thrombosis prophylaxis. 14. Additional workup and consultants based on above. Dictated by Princess Kwan M.D. PEREZ/darline TD: 05/13/2017 17:24 JOB #: [id number] Unit #: [id number] #: [id number] Patient: VIRAJ SANCHEZ HISTORY AND PHYSICAL Page 1 of 1 X Princess Kwan MD X HISTORY AND PHYSICAL
--- NOTE | ~2017-05-13 | OR ---
Unit #: [id number] #: [id number] Patient: VIRAJ SANCHEZ [id number] [address] [id number] I MR#: [id number] NAME: VIRAJ SANCHEZ ROOM: 219 Date of Procedure: 05/18/2017 Admission Date: 05/13/2017 Surgeon: Antolin Escobar M.D. : 1960 Attending Physician: Maggie Wade M.D. Primary Care Physician: Primary Care Physician No OPERATIVE REPORT PROCEDURE PERFORMED Colonoscopy with multiple snare polypectomies. INDICATIONS FOR PROCEDURE The patient with severe right-sided abdominal pain. Rest of the workup has been negative so far, is also having microcytic anemia. MEDICATIONS Monitored anesthesia. POSTOPERATIVE FINDINGS 1. Polyp, ascending colon x1, 6 to 8 mm, snared and sent for histopathology. 2. Polyp, transverse colon, 6 to 8 mm, snared and sent for histopathology. 3. Polyp 1.5 cm, rectosigmoid junction, snared and sent for histopathology. 4. Internal hemorrhoids. 5. No colitis. PLAN 1. Symptomatic treatment for pain. 2. Follow up on the pathology report. 3. Colonoscopy in 3 years. DESCRIPTION OF PROCEDURE The patient was explained of the procedure, risks, and benefits along with risks and benefits of anesthesia. He was brought to the endoscopy room. Propofol anesthesia was given. Rectal exam was done, which was normal. Colonoscope was lubricated, passed up the rectum, advanced under direct vision all the way to cecum. Findings as described. Snare polypectomy were carried out. I retroflexed in the rectum, small hemorrhoids seen. Scope was gently pulled out. He tolerated it well. No major complications were seen. Dictated by... Ines Brown/rick TD: 05/18/2017 15:58 Unit #: [id number] #: [id number] Patient: VIRAJ SANCHEZ JOB #: [id number] OPERATIVE REPORT Page 1 of 1 X Antolin Escobar MD X PROCEDURE OPERATIVE NOTE
--- NOTE | ~2017-05-13 | DS ---
Unit #: [id number] #: [id number] Patient: VIRAJ MANN [id number] [address] [id number] I MR#: [id number] NAME: VIRAJ MANN ROOM: 219 Age: 57 Sex: M Admission Date: 05/13/2017 : 1960 Discharge Date: 05/17/2017 Attending Physician: Maggie Wade M.D. Primary Care Physician: Primary Care Physician No DISCHARGE SUMMARY PRINCIPAL DIAGNOSES 1. Duodenal ulcer with associated postprandial pain. 2. Musculoskeletal chest pain. 3. Diabetes mellitus, type 2, noninsulin requiring and controlled with hemoglobin A1c of 7.2. 4. Weight loss secondary to poor oral intake. 5. Postoperative intraabdominal hematoma. 6. Iron deficiency anemia. 7. Medication-induced hypoglycemia. 8. Moderate protein malnutrition. 9. History of alcohol abuse without evidence of withdrawal. 10. Obesity. 11. Probable obstructive sleep apnea. 12. Gastritis. 13. Hepatic steatosis. CONSULTANTS Dr. Escobar - gastroenterology PROCEDURES 1. EGD on May 16, 2017, with a 1.5 mm duodenal bulb ulcer, changes of gastritis was also noted with pending biopsy. 2. CT scan of the abdomen and pelvis with contrast on May 13, 2017 with residual postoperative hematoma in the upper abdomen, these are adjacent to the inferior margin of the left hepatic lobe and a smaller hematoma in the superior left upper quadrant, no free fluid in the abdomen or pelvis. Mild splenic enlargement is noted. Adenopathy of the right groin measuring 1.8 cm is noted. 3. MRCP with and without contrast on May 14, 2017, with no organized fluid collection, hepatosplenomegaly noted. Three nonspecific nodular foci in the upper abdomen demonstrating rim enhancement, these appear to be resolving hematomas, 3 cm poorly defined enhancement in the midline omental fat again is evolving fat necrosis. CLINICAL HISTORY AND HOSPITAL COURSE Mr. Mann is a nice 57-year-old male, who presents to the emergency department with complaints of chest pain. the patient has a history of significant cholecystitis status post cholecystectomy three months ago. The patient had associated choledocholithiasis at the time of the cholecystectomy and underwent ERCP with dilatation of the common bile duct balloon and basket sweep, he had had poor oral intake since surgery up until two weeks prior to presentation when he developed significant abdominal pain, both with movement and postprandial. He was subsequently admitted. Unit #: [id number] #: [id number] Patient: VIRAJ MANN CT scan of the abdomen and pelvis revealed resolving hematoma. The patient subsequently underwent MRCP to rule out any recurrent, bile duct stone formation but this was negative. The patient subsequently under EGD with findings as noted above. His symptoms have improved a bit on Protonix, but he continues to have diffuse abdominal pain particularly with movement. The patient is currently awaiting colonoscopy. Assuming that this is negative I think the patient can safely be discharged home with close outpatient followup and some pain control. The patient did have some medication-induced hypoglycemia. He has lost a significant amount of weight over the last three months, somewhere between 40 and 60 pounds, and I expect his sugars have improved as well, I am going to hold his sulfonylurea upon discharge and if sugars increase after eating at home perhaps he can reinitiate sulfonylurea if necessary. The patient's other chronic condition remains stable. He was found to have a mild iron deficiency anemia and will be placed on iron supplementation upon discharge. DISCHARGE CONDITION Stable. DISCHARGE STATUS Discharged to home. DISCHARGE MEDICATIONS 1. Metoprolol tartrate 25 mg b.i.d. 2. Ferrous gluconate 324 mg daily with one refill 3. Aspirin 81 mg daily 4. Klor-Con 10 mEq daily 5. Protonix 40 mg daily with one refill DISCHARGE INSTRUCTIONS The patient was instructed to follow a heart healthy diet, to not eat two hours before bedtime, and try to keep his head of bed elevated to avoid any further NSAID use, or alcohol use. FOLLOWUP The patient will follow up with Dr. Escobar per his recommendations. The patient will follow up with primary care provider in two weeks. Dictated by... Maggie Wade M.D. EVERETT/deven TD: 05/18/2017 10:51 JOB #: [id number] Unit #: [id number] #: [id number] Patient: VIRAJ MANN DISCHARGE SUMMARY Page 1 of 1 X Maggie Wade MD X DISCHARGE SUMMARY
[2017-05-13 13:23] LABS: BASOPHIL% 0.7 % (0-2.5); EOSINOPHIL# 0.1 X10e3 (0-0.7); EOSINOPHIL% 1.3 % (0.0-7.0); HEMATOCRIT 32.3 % (38.0-50.0); HEMOGLOBIN 10.8 gm/dL (13.0-16.0); LYMPHOCYTE# 1.3 X10e3 (1.0-3.5); LYMPHOCYTE% 23.8 % (17.0-45.0); MEAN CELL VOLUME 80.6 FL (83-96); MEAN CORPUSCULAR HEMOGLOBIN 26.9 PG (28-34); MEAN CORPUSCULAR HGB CONC 33.4 g/dL (30-36); MEAN PLATELET VOLUME 7.4 FL (6.5-11.5); MONOCYTE# 0.4 X10e3 (0-1.0); MONOCYTE% 7.9 % (3.0-12.0); NEUTROPHIL# 3.7 X10e3 (1.5-7.1); NEUTROPHIL% 66.3 % (40-75); PLATELET COUNT 210 X10e3 (140-420); RED CELL DISTRIBUTION WIDTH 16.4 % (11.0-15.5); WHITE BLOOD COUNT 5.6 X10e3 (4.0-10.5)
[2017-05-13 13:31] LABS: DIFF IND NO
[2017-05-13 13:46] LABS: URINE SOURCE CLEAN CATCH
[2017-05-13 13:50] LABS: URINE APPEARANCE CLEAR; URINE BILIRUBIN NEG (NEG); URINE BLOOD NEG (NEG); URINE COLOR YELLOW; URINE GLUCOSE NEG (NEG); URINE KETONE NEG (NEG); URINE LEUKOCYTE ESTERASE NEG (NEG); URINE NITRATE NEG (NEG); URINE PH 6.5 (5-8); URINE PROTEIN TRACE (NEG)
[2017-05-13 14:04] LABS: CULTURE INDICATED? NO
[2017-05-13 14:12] LABS: ALBUMIN SERUM 2.6 g/dL (3.5-5.0); ALKALINE PHOSPHATASE 73 U/L (32-92); ALT (SGPT) 10 U/L (10-40); AST (SGOT) 12 U/L (10-42); BILIRUBIN, DIRECT 0.2 mg/dL (0.0-0.2); BILIRUBIN,INDIRECT 0.7 mg/dL (0.0-0.9); BILIRUBIN,TOTAL 0.9 mg/dL (0.2-2.0); BLOOD UREA NITROGEN 8 mg/dL (9-23); CALCIUM SERUM 7.9 mg/dL (8.4-10.2); CARBON DIOXIDE 28 mmol/L (22-31); CHLORIDE 104 mmol/L (100-111); GLUCOSE FASTING 165 mg/dL (70-110); LIPASE 20 U/L (22-51); SODIUM 139 mmol/L (135-145)
[2017-05-13 14:17] LABS: ALCOHOL BLOOD <5 mg/dL (0); POTASSIUM 2.8 mmol/L (3.5-5.1)
[2017-05-14 07:24] LABS: BASOPHIL% 0.8 % (0-2.5); EOSINOPHIL# 0.2 X10e3 (0-0.7); EOSINOPHIL% 4.4 % (0.0-7.0); HEMATOCRIT 31.6 % (38.0-50.0); HEMOGLOBIN 10.7 gm/dL (13.0-16.0); LYMPHOCYTE% 22.8 % (17.0-45.0); MEAN CELL VOLUME 80.8 FL (83-96); MEAN CORPUSCULAR HEMOGLOBIN 27.3 PG (28-34); MEAN CORPUSCULAR HGB CONC 33.7 g/dL (30-36); MEAN PLATELET VOLUME 7.4 FL (6.5-11.5); MONOCYTE# 0.4 X10e3 (0-1.0); MONOCYTE% 9.2 % (3.0-12.0); NEUTROPHIL# 2.7 X10e3 (1.5-7.1); NEUTROPHIL% 62.8 % (40-75); PLATELET COUNT 168 X10e3 (140-420); RED BLOOD COUNT 3.91 X10e (3.90-5.60); RED CELL DISTRIBUTION WIDTH 16.1 % (11.0-15.5); WHITE BLOOD COUNT 4.4 X10e3 (4.0-10.5)
[2017-05-14 07:27] LABS: DIFF IND NO
[2017-05-14 07:59] LABS: ALBUMIN SERUM 2.2 g/dL (3.5-5.0); BILIRUBIN,TOTAL 0.6 mg/dL (0.2-2.0); BUN/CREATININE RATIO 7.14; CALCIUM SERUM 7.8 mg/dL (8.4-10.2); CREATININE SERUM 0.7 mg/dL (0.6-1.4); GLOM FILT RATE Estimated 103.3 mL/min (>60); MAGNESIUM 1.8 mg/dL (1.6-3.0); POTASSIUM 3.2 mmol/L (3.5-5.1); PROTEIN TOTAL SERUM 5.5 g/dL (6.0-8.3)
[2017-05-14 10:55] LABS: AMYLASE 8 U/L (0-46); LIPASE 16 U/L (22-51)
[2017-05-15 05:20] LABS: HEMATOCRIT 31.1 % (38.0-50.0); HEMOGLOBIN 10.4 gm/dL (13.0-16.0); MEAN CORPUSCULAR HGB CONC 33.3 g/dL (30-36); MEAN PLATELET VOLUME 7.6 FL (6.5-11.5); RED BLOOD COUNT 3.84 X10e (3.90-5.60); RED CELL DISTRIBUTION WIDTH 16.7 % (11.0-15.5); WHITE BLOOD COUNT 5.2 X10e3 (4.0-10.5)
[2017-05-15 06:00] LABS: ALBUMIN SERUM 2.3 g/dL (3.5-5.0); BILIRUBIN,TOTAL 0.7 mg/dL (0.2-2.0); BUN/CREATININE RATIO 8.57; CALCIUM SERUM 8.1 mg/dL (8.4-10.2); CREATININE SERUM 0.7 mg/dL (0.6-1.4); GLOM FILT RATE Estimated 103.3 mL/min (>60); MAGNESIUM 1.7 mg/dL (1.6-3.0); POTASSIUM 3.9 mmol/L (3.5-5.1); PROTEIN TOTAL SERUM 5.7 g/dL (6.0-8.3)
[2017-05-15 10:29] LABS: IRON SERUM 25 ug/dL (45-182); TOTAL IRON BINDING CAPACITY 155 ug/dL (252-460); TRANSFERRIN 111 mg/dL (180-329); TRANSFERRIN SATURATION 16 % (20-50)
[2017-05-16 05:57] LABS: MAGNESIUM 1.8 mg/dL (1.6-3.0); POTASSIUM 3.9 mmol/L (3.5-5.1)
[2017-05-18 06:48] LABS: HEMATOCRIT 34.1 % (38.0-50.0); HEMOGLOBIN 11.2 gm/dL (13.0-16.0); MEAN CELL VOLUME 80.9 FL (83-96); MEAN CORPUSCULAR HEMOGLOBIN 26.5 PG (28-34); MEAN CORPUSCULAR HGB CONC 32.7 g/dL (30-36); MEAN PLATELET VOLUME 7.5 FL (6.5-11.5); RED BLOOD COUNT 4.22 X10e (3.90-5.60); RED CELL DISTRIBUTION WIDTH 16.4 % (11.0-15.5); WHITE BLOOD COUNT 4.2 X10e3 (4.0-10.5)
[2017-05-18 07:29] LABS: ALBUMIN SERUM 2.4 g/dL (3.5-5.0); ALKALINE PHOSPHATASE 76 U/L (32-92); ALT (SGPT) 11 U/L (10-40); AST (SGOT) 16 U/L (10-42); BILIRUBIN,TOTAL 0.6 mg/dL (0.2-2.0); CALCIUM SERUM 8.3 mg/dL (8.4-10.2); CARBON DIOXIDE 31 mmol/L (22-31); CHLORIDE 102 mmol/L (100-111); CREATININE SERUM 0.6 mg/dL (0.6-1.4); GLOM FILT RATE Estimated 110.1 mL/min (>60); GLUCOSE FASTING 97 mg/dL (70-110); POTASSIUM 3.7 mmol/L (3.5-5.1); PROTEIN TOTAL SERUM 5.4 g/dL (6.0-8.3); SODIUM 139 mmol/L (135-145)
[2017-05-18 07:31] LABS: BLOOD UREA NITROGEN <5 mg/dL (9-23); BUN/CREATININE RATIO 8.33
[2017-05-18] MEDS ORDERED: FERROUS GLUCON324 M2 PO (14:05)
[2017-05-18] MEDS ORDERED: PROTONIX PO (14:05)
[2017-05-18] MEDS ORDERED: OXYCODONE HCL5 MG PO (14:06)
[2017-06-24] MEDS ORDERED: NO MEDICATIONS (21:25)
[2017-06-26] MEDS ORDERED: FAMOTIDINE PO (16:15)
== END 2017-05-18 15:11 | disposition home or self-care (01) | DRG 920 ==
LOC: CED 12:20 → C2A 16:40 → CED 18:40 → C2A 18:40
PROVIDERS: Emergency Medicine; Family Medicine; Internal Medicine
PROC: 0DB68ZX Excision of Stomach, Via Natural or Artificial Opening Endoscopic, Diagnostic (ICD-10-PCS; 2017-05-16)
PROC: 0DBL8ZX Excision of Transverse Colon, Via Natural or Artificial Opening Endoscopic, Diagnostic (ICD-10-PCS; 2017-05-18)
PROC: 0DBK8ZX Excision of Ascending Colon, Via Natural or Artificial Opening Endoscopic, Diagnostic (ICD-10-PCS; principal; 2017-05-18 10:00)
PROC: 0DBN8ZX Excision of Sigmoid Colon, Via Natural or Artificial Opening Endoscopic, Diagnostic (ICD-10-PCS; 2017-05-18 10:00)
DX: K91.870 Postprocedural hematoma of a digestive system organ or structure following a digestive system procedure (principal); E44.0 Moderate protein-calorie malnutrition; E11.649 Type 2 diabetes mellitus with hypoglycemia without coma; K76.0 Fatty (change of) liver, not elsewhere classified; K26.9 Duodenal ulcer, unspecified as acute or chronic, without hemorrhage or perforation; F10.10 Alcohol abuse, uncomplicated; K63.5 Polyp of colon; D50.9 Iron deficiency anemia, unspecified; Y83.8 Other surgical procedures as the cause of abnormal reaction of the patient, or of later complication, without mention of misadventure at the time of the procedure; K64.8 Other hemorrhoids; K29.70 Gastritis, unspecified, without bleeding; Z68.36 Body mass index [BMI] 36.0-36.9, adult; E66.9 Obesity, unspecified; T50.905A Adverse effect of unspecified drugs, medicaments and biological substances, initial encounter; Y92.9 Unspecified place or not applicable; R07.89 Other chest pain; E87.6 Hypokalemia; Z83.3 Family history of diabetes mellitus; Z82.49 Family history of ischemic heart disease and other diseases of the circulatory system
CPT/HCPCS: 36415; 74177; 74183; 80048; 80053; 80076; 81003; 82150; 82947; 83540; 83550; 83690; 83735; 84132; 84443; 85025; 85027; 88305; 88312; 96361; 96374; 96375; 99285; A9577; C9113; G0480; J2250; J2270; J2405; J3475; Q9967

== ENCOUNTER 2017-05-27 15:33 | Emergency (ER) | payer OTHER ==
[~2017-05-27] VITALS: Ht 193 cm; Wt 136.1 kg
--- NOTE | ~2017-05-27 | CT2 ---
[facility] A Service of [facility] RADIOLOGY TEXT RESULTS PATIENT: VIRAJ SANCHEZ LOCATION: [facility] : 56 UNIT #: [id number] AGE: [address]: Zackary Colon MD SEX: M ORDER DR: [id number] [facility] [address] [place], [place] [address] [id number] E MR#: [id number] Acc #: [id number] NAME: VIRAJ SANCHEZ : 1960 SEX: M STUDY DATE/TIME: 05/27/2017 20:32 UNIT: [facility] ROOM: STUDY DESCRIPTION: CT Abd and Pelv W Cont Attending Physician: Zackary Colon M.D. Ordering Physician: Rosalia Valencia M.D. Primary Care Physician: Primary Care Physician No MEDICAL IMAGING REPORT This report is preliminary unless electronic signature is present EXAM CT abdomen and pelvis with contrast DATE 05/27/2017 HISTORY Abdominal pain for 1 month, greatest on the right side. COMPARISON CT abdomen and pelvis 05/13/2017. MRI and MRCP of the abdomen 05/14/2017. PROCEDURE 5 mm axial images from lung bases through lesser trochanters after intravenous and enteric contrast administration. Sagittal and coronal reformatted images were obtained. This CT exam was performed with one or more of the following radiation dose reduction techniques: automatic control, adjustment of mA and/or kV according to patient size, and iterative reconstruction. FINDINGS ABDOMEN FINDINGS: Mild soft tissue stranding is demonstrated along the anterior margin of the left hepatic lobe inferiorly with more confluent density measuring 2.6 x 2.9 cm, thought to represent a slowly resolving postoperative hematoma. It is slightly smaller than on the 05/13/2017 examination where it measured maximal 3.1 cm. Cholecystectomy changes are present and there is mild pneumobilia, similar to prior exam. The spleen, pancreas, adrenals and kidneys are within normal limits. The appendix is normal. The bowel appears nonthickened and noninflamed. Lung bases are free of acute airspace disease. Not mentioned above, borderline splenic enlargement is stable compared to prior. [facility] A Service of [facility] RADIOLOGY TEXT RESULTS PATIENT: VIRAJ SANCHEZ LOCATION: [facility] : 56 UNIT #: [id number] AGE: [address]: Zackary Colon MD SEX: M ORDER DR: PELVIS FINDINGS: Urinary bladder, prostate and rectum are normal. Mildly prominent bilateral inguinal lymph nodes, right greater left, stable, thought to represent benign reactive changes. IMPRESSION 1. Ill-defined stranding and thickening within the anterior right upper quadrant of the abdomen, thought to represent postsurgical residual inflammatory change and probable postsurgical hematoma. They appear slightly smaller when compared to the CT abdomen and pelvis of 05/13/2017. 2. The appendix is normal. 3. Cholecystectomy with expected degree of postoperative pneumobilia, similar to prior exam. Dictated by... Deanna Rojas M.D. THIS IS AN ELECTRONICALLY VERIFIED REPORT Deanna Rojas M.D. at 05/29/2017 9:56 AM NADIYA/maite TD: 05/28/2017 05:16 JOB #: [id number] MEDICAL IMAGING REPORT Page 1 of 1 COPY
[~2017-05-27 15:33] MED LIST changes: +FERROUS GLUCON324 M2 PO; +OXYCODONE HCL5 MG PO; +PROTONIX PO
[2017-05-27 17:15] LABS: URINE SOURCE CLEAN CATCH
[2017-05-27 17:19] LABS: URINE APPEARANCE CLEAR; URINE BILIRUBIN NEG (NEG); URINE BLOOD NEG (NEG); URINE COLOR YELLOW; URINE GLUCOSE NEG (NEG); URINE KETONE NEG (NEG); URINE LEUKOCYTE ESTERASE NEG (NEG); URINE NITRATE NEG (NEG); URINE PH 5.5 (5-8); URINE PROTEIN NEG (NEG); URINE SPECIFIC GRAVITY 1.012 (1.003-1.035); URINE UROBILINOGEN 0.2 MG/DL (NEG)
[2017-05-27 17:20] LABS: BASOPHIL# 0.1 X10e3 (0-0.3); BASOPHIL% 1.1 % (0-2.5); EOSINOPHIL# 0.1 X10e3 (0-0.7); EOSINOPHIL% 2.2 % (0.0-7.0); HEMOGLOBIN 11.4 gm/dL (13.0-16.0); LYMPHOCYTE# 1.7 X10e3 (1.0-3.5); LYMPHOCYTE% 28.6 % (17.0-45.0); MEAN CELL VOLUME 79.8 FL (83-96); MEAN CORPUSCULAR HEMOGLOBIN 26.8 PG (28-34); MEAN CORPUSCULAR HGB CONC 33.6 g/dL (30-36); MONOCYTE# 0.4 X10e3 (0-1.0); MONOCYTE% 6.7 % (3.0-12.0); NEUTROPHIL# 3.8 X10e3 (1.5-7.1); NEUTROPHIL% 61.4 % (40-75); PLATELET COUNT 229 X10e3 (140-420); RED BLOOD COUNT 4.27 X10e (3.90-5.60); RED CELL DISTRIBUTION WIDTH 15.8 % (11.0-15.5); WHITE BLOOD COUNT 6.1 X10e3 (4.0-10.5)
[2017-05-27 17:22] LABS: DIFF IND NO
[2017-05-27 17:23] LABS: CULTURE INDICATED? NO
[2017-05-27 17:44] LABS: ALBUMIN SERUM 3.1 g/dL (3.5-5.0); BILIRUBIN, DIRECT 0.2 mg/dL (0.0-0.2); BILIRUBIN,INDIRECT 0.8 mg/dL (0.0-0.9); CALCIUM SERUM 8.8 mg/dL (8.4-10.2); CREATININE SERUM 0.9 mg/dL (0.6-1.4); GLOM FILT RATE Estimated 93.2 mL/min (>60); POTASSIUM 3.7 mmol/L (3.5-5.1); PROTEIN TOTAL SERUM 6.7 g/dL (6.0-8.3)
[2017-06-24] MEDS ORDERED: NO MEDICATIONS (21:25)
[2017-06-26] MEDS ORDERED: FAMOTIDINE PO (16:15)
== END 2017-05-27 23:02 | disposition home or self-care (01) ==
LOC: CED 15:33
PROVIDERS: Emergency Medicine
DX: R10.9 Unspecified abdominal pain (principal); Z79.82 Long term (current) use of aspirin; Z79.899 Other long term (current) drug therapy
CPT/HCPCS: 36415; 74177; 80048; 80076; 81003; 82150; 83690; 85025; 99284; Q9967

== ENCOUNTER → 2017-06-07 | Outpatient (CLI) | payer OTHER ==
[~2017-06-07] MED LIST changes: +FAMOTIDINE PO
[2017-06-07 15:02] LABS: HEMATOCRIT 37.7 % (38.0-50.0); HEMOGLOBIN 12.7 gm/dL (13.0-16.0); MEAN CELL VOLUME 79.3 FL (83-96); MEAN CORPUSCULAR HEMOGLOBIN 26.7 PG (28-34); MEAN CORPUSCULAR HGB CONC 33.7 g/dL (30-36); MEAN PLATELET VOLUME 6.9 FL (6.5-11.5); RED BLOOD COUNT 4.76 X10e (3.90-5.60); RED CELL DISTRIBUTION WIDTH 15.5 % (11.0-15.5); WHITE BLOOD COUNT 7.1 X10e3 (4.0-10.5)
[2017-06-07 15:30] LABS: ALBUMIN SERUM 3.2 g/dL (3.5-5.0); BILIRUBIN,TOTAL 0.8 mg/dL (0.2-2.0); BUN/CREATININE RATIO 5.55; CALCIUM SERUM 9.2 mg/dL (8.4-10.2); CREATININE SERUM 0.9 mg/dL (0.6-1.4); GLOM FILT RATE Estimated 93.2 mL/min (>60); POTASSIUM 3.5 mmol/L (3.5-5.1); PROTEIN TOTAL SERUM 7.3 g/dL (6.0-8.3)
== END | disposition home or self-care (01) ==
LOC: CLAB 14:29
PROVIDERS: Internal Medicine
DX: R10.11 Right upper quadrant pain (principal)
CPT/HCPCS: 36415; 80053; 85027

== ENCOUNTER 2017-06-22 05:28 | Emergency (ER) | payer OTHER ==
[~2017-06-22] VITALS: Ht 193 cm; Wt 136.1 kg
--- NOTE | ~2017-06-22 | CT16 ---
[facility] A Service of [facility] RADIOLOGY TEXT RESULTS PATIENT: VIRAJ SANCHEZ LOCATION: [facility] : 56 UNIT #: [id number] AGE: [address]: Zackary Colon MD SEX: M ORDER DR: [id number] [facility] [address] [place], [place] [address] [id number] E MR#: [id number] Acc #: [id number] NAME: VIRAJ SANCHEZ : 1960 SEX: M STUDY DATE/TIME: 06/22/2017 8:26 UNIT: [facility] ROOM: STUDY DESCRIPTION: CT Angio Chest for PE Attending Physician: Zackary Colon M.D. Ordering Physician: Zackary Colon M.D. Primary Care Physician: Primary Care Physician No MEDICAL IMAGING REPORT This report is preliminary unless electronic signature is present EXAM CT chest with contrast, pulmonary arteriography protocol, 06/22/2017 HISTORY 57-year-old male in the ED complaining of 6-hour history of thoracic back pain. Chest pain, shortness of air. TECHNIQUE CT examination of the chest was performed with IV contrast, pulmonary arteriography protocol. CTA MIP images of the pulmonary arteries were reformatted. This CT exam was performed with one or more of the following radiation dose reduction techniques: automatic exposure control, adjustment of mA and/or kV according to patient size, and iterative reconstruction. FINDINGS IV access was reportedly limited. There is incomplete contrast opacification of the pulmonary arteries within the mid and peripheral lung zones on this study. No large pulmonary embolism is visible within the main pulmonary arteries or large perihilar pulmonary arteries. Normal caliber thoracic aorta with no aneurysm or dissection. Heart size is normal, and there is no pericardial effusion. The lungs are clear. No pleural effusion. No rib fracture or other chest wall abnormality is identified. No suspicious mass or adenopathy within the chest. IMPRESSION 1. Limited study with incomplete contrast opacification of medium and small pulmonary arteries within the mid and peripheral lung zones. These vessels cannot be assessed adequately on this exam. [facility] A Service of [facility] RADIOLOGY TEXT RESULTS PATIENT: VIRAJ SANCHEZ [id number] : 56 UNIT #: [id number] AGE: [address]: Zackary Colon MD SEX: M ORDER DR: 2. No evidence of pulmonary embolism within the main pulmonary arteries or large central perihilar pulmonary arteries. 3. No acute abnormality within the chest. The lungs are clear. No pleural or pericardial effusion. Dictated by... Jb Duong M.D. THIS IS AN ELECTRONICALLY VERIFIED REPORT Jb Duong M.D. at 06/22/2017 3:39 PM Horacio TD: 06/22/2017 12:57 JOB #: [id number] MEDICAL IMAGING REPORT Page 1 of 1 COPY
--- NOTE | ~2017-06-22 | CR72 ---
[facility] A Service of [facility] [place] [facility] RADIOLOGY TEXT RESULTS PATIENT: VIRAJ SANCHEZ LOCATION: [facility] : 56 UNIT #: [id number] AGE: [address]: Zackary Colon MD SEX: M ORDER DR: [id number] [facility] [address] [place], [place] [address] [id number] E MR#: [id number] Acc #: [id number] NAME: VIRAJ SANCHEZ : 1960 SEX: M STUDY DATE/TIME: 06/22/2017 6:36 UNIT: [facility] ROOM: STUDY DESCRIPTION: CR Chest Single View Portable Attending Physician: Ed Dread Toth M.D. Ordering Physician: Zackary Colon M.D. Primary Care Physician: No Primary Care Physician MEDICAL IMAGING REPORT This report is preliminary unless electronic signature is present EXAM Chest x-ray, 06/22/2017. HISTORY 57-year-old male in the ED complaining of chest pain, shortness of air and back pain beginning about 6 hours prior to arrival. TECHNIQUE AP portable chest x-ray. FINDINGS The exam shows no active disease in the chest. Heart size and pulmonary vascularity are within normal limits. The lungs are expanded and clear. No visible pulmonary infiltrate or pleural effusion. No change since 04/24/2017. IMPRESSION Negative chest. No change since 04/24/2017. Dictated by... Jb Duong M.D. THIS IS AN ELECTRONICALLY VERIFIED REPORT Jb Duong M.D. at 06/22/2017 3:38 PM NIKITA/ronnie TD: 06/22/2017 09:10 JOB #: [id number] MEDICAL IMAGING REPORT Page 1 of 1 COPY
[~2017-06-22 05:28] MED LIST changes: -FAMOTIDINE PO
[2017-06-22 06:42] LABS: URINE SOURCE CLEAN CATCH
[2017-06-22 06:46] LABS: BASOPHIL# 0.1 X10e3 (0-0.3); BASOPHIL% 1.2 % (0-2.5); EOSINOPHIL# 0.4 X10e3 (0-0.7); EOSINOPHIL% 5.9 % (0.0-7.0); HEMOGLOBIN 11.5 gm/dL (13.0-16.0); LYMPHOCYTE# 2.4 X10e3 (1.0-3.5); LYMPHOCYTE% 36.2 % (17.0-45.0); MEAN CELL VOLUME 80.2 FL (83-96); MEAN CORPUSCULAR HEMOGLOBIN 26.4 PG (28-34); MEAN CORPUSCULAR HGB CONC 32.9 g/dL (30-36); MEAN PLATELET VOLUME 6.7 FL (6.5-11.5); MONOCYTE# 0.3 X10e3 (0-1.0); MONOCYTE% 5.2 % (3.0-12.0); NEUTROPHIL# 3.4 X10e3 (1.5-7.1); NEUTROPHIL% 51.5 % (40-75); PLATELET COUNT 255 X10e3 (140-420); RED BLOOD COUNT 4.36 X10e (3.90-5.60); RED CELL DISTRIBUTION WIDTH 15.9 % (11.0-15.5); WHITE BLOOD COUNT 6.6 X10e3 (4.0-10.5)
[2017-06-22 06:49] LABS: URINE APPEARANCE CLEAR; URINE BILIRUBIN NEG (NEG); URINE BLOOD NEG (NEG); URINE COLOR YELLOW; URINE GLUCOSE NEG (NEG); URINE KETONE NEG (NEG); URINE LEUKOCYTE ESTERASE NEG (NEG); URINE NITRATE NEG (NEG); URINE PROTEIN NEG (NEG); URINE SPECIFIC GRAVITY 1.005 (1.003-1.035); URINE UROBILINOGEN 0.2 MG/DL (NEG)
[2017-06-22 06:50] LABS: DIFF IND NO
[2017-06-22 07:11] LABS: CULTURE INDICATED? NO
[2017-06-22 07:20] LABS: ALBUMIN SERUM 3.3 g/dL (3.5-5.0); BILIRUBIN, DIRECT 0.1 mg/dL (0.0-0.2); BILIRUBIN,INDIRECT 0.5 mg/dL (0.0-0.9); BILIRUBIN,TOTAL 0.6 mg/dL (0.2-2.0); BUN/CREATININE RATIO 15.71; CALCIUM SERUM 8.6 mg/dL (8.4-10.2); CREATININE SERUM 0.7 mg/dL (0.6-1.4); GLOM FILT RATE Estimated 103.3 mL/min (>60); POTASSIUM 3.3 mmol/L (3.5-5.1); PROTEIN TOTAL SERUM 6.9 g/dL (6.0-8.3)
[2017-06-24] MEDS ORDERED: NO MEDICATIONS (21:25)
[2017-06-26] MEDS ORDERED: FAMOTIDINE PO (16:15)
== END 2017-06-22 09:22 | disposition home or self-care (01) ==
LOC: CED 05:28
PROVIDERS: Emergency Medicine
DX: M54.6 Pain in thoracic spine (principal); M54.5 Low back pain; E11.622 Type 2 diabetes mellitus with other skin ulcer; Z79.899 Other long term (current) drug therapy; Z79.82 Long term (current) use of aspirin
CPT/HCPCS: 36415; 71010; 71275; 80048; 80076; 81003; 83690; 85025; 85379; 96374; 99284; J2270; Q9967